=== PATIENT | female | born 2005 | race Caucasian/White ===

== ENCOUNTER 2025-01-27 10:36 | Emergency (ER) | payer BC, OTHER, SELFPAY ==
[2025-01-27 10:40] VITALS: BP 114/76
[2025-01-27 12:11] LABS: Monotest Negative (Negative)
--- NOTE | 2025-01-27 13:02 | ED.GENMED ---
History of Present Illness
General
Chief Complaint: Throat Problem
Source: patient
Exam Limitations: none
Time Seen by Provider: 01/27/25 10:54
Nursing documentation reviewed up to this point in time: agreed with
History of Present Illness
History of Present Illness:
19-year-old female whose had a sore throat for a week. She has had a low-grade fever 99.4. She has had no nausea or vomiting
Her sister had mono 1 month ago, she herself is a college student and is due to go back to college this afternoon. She had tonsillitis in August.
Past History
Past History
ED Past Medical History: None
ED Past Surgical History: None
Social History
Tobacco: Non-smoker
Alcohol: Occasional
Personal: Single
Living: with roommate
Employment: Student
Review of Systems
Review of Systems
Allergies reviewed?: Yes
All Other Systems: ROS reviewed and negative except as documented in HPI and ROS
Constitutional: Reports fever (low grade); Denies fatigue or chills
EENT: Reports sore throat; Denies runny nose
Respiratory: Denies cough or trouble breathing
Cardiac: Denies chest pain
ABD/GI: Denies abdominal pain, nausea, vomiting, diarrhea or anorexia
: Denies dysuria, frequency, difficulty voiding or urgency
Musculoskeletal: Reports no symptoms
Skin: Reports no symptoms
Neurological: Reports no symptoms
Phy Exam
Physical Exam
Physical Exam:
GENERAL: No acute distress. A&Ox3.
CONSTITUTIONAL: Afebrile.
EYES: clear, conjunctivae normal
Neck: Supple
ENMT: moist mucus membranes, Pharynx: Mildly swollen erythematous left tonsillar area with small pockets of white exudate. Speaking and swallowing normally
RESPIRATORY: Regular respirations, nonlabored, lungs clear.
CARDIOVASCULAR: Regular rate and rhythm, no murmurs, no rubs.
GI: Soft, nontender, normal BS
MUSCULOSKELETAL: Moves with ease. Well perfused.
SKIN: Warm, dry, pink
PSYCH: Normal mood and affect. Well kept, interactive and appropriate
NEUROLOGIC: Awake, alert and oriented. No focal neurological deficits
Course
Orders/Labs/Results
Orders:
Orders
01/27/25 11:15
Monotest Urgent
Rapid Strep Group A Urgent
ADITHYA Source: Throat/Pharynx
Specimen Description:
Date Specimen was Collected: 01/27/25
Time Specimen was Collected: 11:05
Throat Culture [Throat Culture, Comprehensive] Urgent
ADITHYA Source: Throat/Pharynx
Specimen Description:
Date Specimen was Collected: 01/27/25
Time Specimen was Collected: 11:05
Vital Signs
Initial and Last Documented VS:
Initial Vital Signs
Temp Pulse Resp BP Pulse Ox
98.7 F 112 16 114/76 99
01/27/25 10:40 01/27/25 10:40 01/27/25 10:40 01/27/25 10:40 01/27/25 10:40
Last Documented Vital Signs
Temp Pulse Resp BP Pulse Ox
98.7 F 112 16 114/76 99
01/27/25 10:40 01/27/25 10:40 01/27/25 10:40 01/27/25 10:40 01/27/25 10:40
MDM/Problems Addressed
Differential Diagnosis Includes:
viral vs bacterial pharyngitis, Ashley
MDM/Problems Addressed:
19-year-old female whose had a sore throat for a week. She has had a low-grade fever 99.4. She has had no nausea or vomiting
Her sister had mono 1 month ago, she herself is a college student and is due to go back to college this afternoon. She had tonsillitis in August.
12:00 p.m.
Monotest negative.
Rapid strep
Since leaving to go back to college, will give Amoxicillin 500 mg BID x 10 days pending throat culture
*Critical Care Note
Total Time (30-74mins, 75-104mins- exclusive of procedures): Not Applicable
ED Attending Note
-
Portions of this chart may have been created with voice recognition software.� Occasional wrong word or��sound alike� substitutions may have occurred due to the inherent limitations of voice recognition software.
Discharge Plan
Departure
Patient Disposition: Home (Routine Discharge)
Date of Disposition: 01/27/25
Time of Disposition: 13:08
Patient with high blood pressure during this ER visit?: No
Condition: Good
Discharge Problem:
Pharyngitis
Instructions: Sore Throat, Adult (DC)
Prescriptions:
New
amoxicillin 500 mg tablet
500 mg PO BID Qty: 20 0RF
Referrals:
Shauna Holguin MD [Family Provider] - As needed
Activity Restrictions/Additional Instructions:
As we discussed, your rapid strep test is negative. Your monotest is negative. You most likely have a viral sore throat. Since you are going away back to college, I sent a prescription for amoxicillin to your pharmacy to take pending your final
throat culture results.
Interventions
Interventions:
*Risk Screen - Suicide Last Done: 01/27/25 11:27
*General Assessment Last Done: 01/27/25 11:27
*Neglect/Abuse Screening Last Done: 01/27/25 11:27
*ED- Fall Risk Assessment Last Done: 01/27/25 11:27
*ED COVID-19 Vaccine History Last Done: 01/27/25 11:27
*Nursing Disposition Last Done: 01/27/25 13:17
ED-EENT Assessment Last Done: 01/27/25 11:27
ED- Pulmonary Assessment Last Done: 01/27/25 11:27
Discharge Date and Time
Discharge Date/Time: 01/27/25 13:17
Print Language: NEPALESE
== END 2025-01-27 13:17 | disposition home or self-care (01) ==
LOC: EMR 10:36
PROVIDERS: Registered Nurse; EMERGENCY PHYSICIAN Emergency Medicine; FAMILY PHYSICIAN Pediatrics
DX: J02.9 Acute pharyngitis, unspecified (principal)
CPT/HCPCS: 99283; 86308; 87070; 87880